=== PATIENT | male | born 1955 | race Caucasian/White ===

== ENCOUNTER → 2018-06-30 | Outpatient (REF) | payer OTHER | LOC: M LAB REF 11:37 | DX: E04.2 Nontoxic multinodular goiter (principal) | CPT/HCPCS: 88173 ==

== ENCOUNTER → 2020-01-22 | Outpatient (CLI) | payer BC, OTHER ==
--- NOTE | 2020-01-23 11:01 | REP ---
MRI LUMBAR SPINE WITHOUT CONTRAST: HISTORY: Degenerative disc disease. Spondylolisthesis. Difficulty walking. Pain. No comparison imaging. TECHNIQUE: Sagittal and axial T1- and T2-weighted scans are acquired in the usual fashion with and without fat saturation. Sequences include spin echo, turbo spin-echo, and STIR imaging sequences. The patient declined intravenous contrast. FINDINGS: Lumbar vertebral body heights are preserved. Cortical and medullary bone signal intensity are normal. There is a levoconvex curvature. There is normal caliber aorta. No extra vertebral abnormality is appreciated. The tip of the conus medullaris is normal in position and appearance at T12-L1. There are degenerative disc changes and reactive marrow changes associated with this at L3-4. 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 There is diffuse disc bulging and mild central canal stenosis is seen resulting from diffuse disc bulging in combination with facet and ligamentum flavum hypertrophy. The midline AP dimension of the thecal sac at L3-4 is 11 mm. There is mild bilateral neural foraminal narrowing due to disc bulging, facet hypertrophy, and the spondylolisthesis. There is no evidence of spondylolysis. At L4-5, there is mild diffuse disc bulging. Mild central canal stenosis is seen due to this in combination with ligamentum flavum and facet hypertrophy. Midline AP dimension of the thecal sac at L4-5 is 10 mm. There is no foraminal narrowing at L4-5. At L5-S1, there is a large left posterior focal disc protrusion compressing the thecal sac and the left S1 root. This disc protrusion measures 12 mm right to left x 8 mm anterior to posterior x 13 mm craniocaudal. No neural foraminal narrowing is appreciated. There is facet hypertrophy bilaterally. IMPRESSION: The dominant abnormalities include a large left posterior focal disc protrusion at L5-S1, mild central canal stenosis at L4-5 and L3-4, and grade 1 degenerative L3-4 spondylolisthesis with mild bilateral foraminal narrowing. This is more prominent on the right. Electronically Signed by Fabian Silveira MD 01/23/2020 11:04 A
== END ==
LOC: M RAD 10:54
PROVIDERS: ATTEND Orthopaedic Surgery
DX: M43.16 Spondylolisthesis, lumbar region (principal); M51.26 Other intervertebral disc displacement, lumbar region; M48.061 Spinal stenosis, lumbar region without neurogenic claudication